=== PATIENT | female | born 1995 | race Caucasian/White ===

== ENCOUNTER 2019-04-29 16:20 | Inpatient (IN) | payer OTHER ==
[~2019-04-29 16:20] MED LIST: Bupivacaine HCl 0.25%/Epi 0.0005/PF 10 ML VIAL FS ONE
[2019-04-29 17:16] VITALS: BMI 29.2
[2019-04-29 17:42] LABS: Amnisure Test RUPTURE DETECTED (No Rupture)
[2019-04-29 17:43] LABS: Amnisure Internal Control QC ACCEPTABLE (ACCEPTABLE)
[2019-04-29] MEDS ORDERED: hydrALAZINE 20 MG/ML VIAL SLOW IVP PRN (18:25)
[2019-04-29] MEDS ORDERED: Promethazine HCl 25 MG/ML VIAL IM PRN (18:25)
[2019-04-29] MEDS ORDERED: Lidocaine 1% (PF) 30 ML VIAL SC PRN (18:25)
[2019-04-29] MEDS ORDERED: Methylergonovine 0.2 MG/ML VIAL IM PRN (18:25)
[2019-04-29] MEDS ORDERED: Ondansetron PF 4 MG/2 ML Vial IVP PRN (18:25)
[2019-04-29] MEDS ORDERED: Diphenoxylate HCl/Atropine Tablet PO PRN ×2 (18:25)
[2019-04-29] MEDS ORDERED: Carboprost 250 MCG/ML AMP IM PRN (18:25)
[2019-04-29] MEDS ORDERED: Misoprostol 200 MCG TAB PR PRN (18:25)
[2019-04-29] MEDS ORDERED: Acetaminophen 500 MG TAB PO PRN (18:25)
[2019-04-29] MEDS ORDERED: Butorphanol Tartrate 1 MG/ML VIAL SLOW IVP PRN (18:25)
[2019-04-29] MEDS ORDERED: Penicillin G Potassium 5 MILL.UNITS in Sodium Chloride 0.9% 100 ML IVPB SCH (18:45)
--- NOTE | 2019-04-29 18:56 | PDOC.FPROB ---
FMR OB H&P: HPI - History of Present Illness Chief Complaint: LOF Indentification: 23 yo @ 35.6 wks by LMP/15.0wk sono History of Present Illness: Pt comes in for complaint of LOF. Reports feeling like her water broke around noon. Reports feeling like she might of urinated a bit around noon. Not a large gush. Reports having leaking all afternoon. Reports feeling some occasional ctx. Reports feeling back pain off and on. Denies any vaginal bleeding. Denies any vaginal itching or irritation. Denies any urinary sx's. Denies any headaches or vision changes. Reports some swelling in her LE. Denies any n/v. Primary Care Physician: Dr. 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 pap hx - Surgical History Sx History: tonsillectomy and PE tubes - Social History Social History: Denies tobacco, alcohol or illicit drug use - Family History Family History: MGM-HTN, mother- thyroid FMR OB H&P: Medications - Current Home Medications: Medication Instructions Recorded Confirmed Type Vit No.129/Iron/Folic 1 each PO DAILY 04/29/19 04/29/19 History [ Tablet] Ibuprofen [Motrin] 800 mg PO Q8HR #20 tab 05/01/19 Rx Allergies/Adverse Reactions: Allergies Allergy/AdvReac Type Severity Reaction Status Date / Time No Known Allergies Allergy Verified 04/29/19 17:10 FMR OB H&P: ROS - Review of Systems General: denies: fever/chills, weight/appetite/sleep changes, night sweats, fatigue Eyes: denies: eye pain, vision changes ENT: denies: nasal congestion, rhinorrhea, sore throat Cardiovascular: reports: edema (LE edema). denies: chest pain Gastrointestinal: denies: abdominal pain, bloating, cramping, nausea, vomiting, diarrhea, constipation Genitourinary (Female): reports: contractions. denies: incontinence, dysuria, vaginal discharge, vaginal pain, vaginal bleeding, vaginal pressure Musculoskeletal: denies: pain, stiffness, tenderness, redness Neurologic: denies: numbness, weakness Integumentary: denies: itching, rash Psychological: denies: depression, anxiety FMR OB H&P: Vital Signs - Maternal Vital signs: Vital Signs - First Documented Temp Pulse Resp BP 98.8 F 84 18 125/77 04/29/19 16:55 04/29/19 16:55 04/29/19 16:55 04/29/19 16:55 - Heart Tones Baseline: 130 Variability: moderate Acceleration: present Deceleration: absent Category: category 1 [place] contractions every: 5-6 minutes FMR OB H&P: Physical Exam - Physical Exam General: NAD, awake, alert and oriented HEENT: normocephalic and atraumatic, MMM, grossly normal vision, grossly normal hearing, normal nasal mucosa Neck: supple, trachea midline Heart: RRR, normal S1/S2, no murmurs/rubs/gallops, no edema General: CTAB, no respiratory distress, good air movement, no rales/rhonchi, no wheezing Abdomen: soft, gravid, non-tender, bowel sound present, no masses, no hernias Musculoskeletal: normal gait and station, pulses present Neurological: sensation to pain,touch and proprioception grossly normal Skin: no rash, good tugor, capillary refill <2 seconds Psychiatric: intact recent and remote memory, good judgement and insight, normal mood and affect - Pelvic Exam SVE: 17:20 2/80/0 Membranes: amnisure positive FMR OB H&P: Results - Labs Lab results: Laboratory Results - last 24 hr 04/29/19 17:20 Amnio Swab Test RUPTURE DETECTED H FMR OB H&P: A/P - Problem List (1) Current Visit: Yes Status: Acute Qualifiers: Weeks of gestation: 36 weeks Qualified Code(s): Z3A.36 - 36 weeks gestation of Disposition: 23 yo @ 35.6 weeks dated by LMP/15.0 wk sono here for concern of LOF -Amnisure positive. -SVE 80/0 @ 17:20. Ctx every 5-6 minutes -Cat 1 strip. Accels noted. -Will check speculum exam for pooling and get US to check fluid level. -Will continue to monitor for progression of labor. -Will give dose of steroids and will check GBS as unkown at this time. If pt appears in Labor will start on penicillin for coverage. Discussion: Date/Time: 04/29/19 3107 This H&P was discussed with [] and [] who agree with the above documentation and plan. Addendum - Attending - Attending Attestation Date/Time: 05/01/19 5060 I personally evaluated the patient and discussed the management with Dr. Tom I agree with the History, Examination, Assessment and Plan documented above with any addition or exceptions noted below.
[2019-04-29] MEDS: Betamet Acet/Betamet Na Ph 30 MG/5 ML VIAL IM SCH (19:41)
[2019-04-29 20:06] LABS: HBSAg Index 0.21 S/CO (0-0.99); Hep B Surf Ag Non-Reactive S/CO (NonReactive); Syphilis Antibody Nonreactive (Nonreactive); Syphilis Antibody Index 0.09 S/CO (<1.00 Non-Reactive)
--- NOTE | 2019-04-29 20:07 | ULT ---
EXAM: Pelvic ultrasound HISTORY: female with size less than dates. Evaluate amniotic volume and presentation COMPARISON: None TECHNIQUE: Multiple grayscale and color Doppler images were obtained in a transabdominal pelvic ultra sound. FINDINGS: The fetus is in vertex presentation. A heart rate is detected at 137 bpm. JIA is 6.1 cm. The placenta is anterior in location without evidence of placenta previa. IMPRESSION: Single live intrauterine in vertex presentation
[2019-04-29 20:29] LABS: Hemoglobin 12.1 g/dL (12.0-16.0); Mean Corpuscular HGB CONC 35.7 g/dL (32.0-36.0); Mean Corpuscular Hemoglobin 31.8 pg (27.0-31.0); Mean Corpuscular Volume 89.2 fL (78.0-98.0); Mean Platelet Volume 7.6 fL (7.4-10.4); Platelet Count 177 thou/uL (130-400); RBC Distribution Width 11.4 % (11.5-14.5)
--- NOTE | 2019-04-29 21:39 | PDOC.LDPN ---
Labor & Delivery Progress Note - Subjective Subjective: comfortable - Objective Vital signs reviewed and normal: yes General: NAD, resting SVE: 8:30 Dilation: 2 Effacement: 90% Station: 0 FHT: category 1, variability present [place] contractions every: 5 minutes Other exam findings: Speculum exam performed. Pooling noted - Assessment (1) Current Visit: Yes Status: Acute Qualifiers: Weeks of gestation: 35 weeks Qualified Code(s): Z3A.35 - 35 weeks gestation of Plan: continue plan of care -: 23 yo @ 35.6 weeks dated by LMP/15.0 wk sono admitted due to PPROM -Cat 1 strip -SVE 8:30 2/80/0. Unchanged from previous check. -1 dose Betamethasone administered. -US showed vertex, JIA 6.1. Speculum exam performed and active pooling from cervix noted. -GBS cx obtained. Will start penicillin ppx due to unknown status -PT VSS. -At this time will continue to monitor and check patient as needed. No plan for augmentation of labor.
[2019-04-30] MEDS: Penicillin G 2.5 MILL.units 2.5 MILL.UNITS in Premix Bag 1 BAG IVPB SCH ×6 (00:45→23:18)
--- NOTE | 2019-04-30 04:15 | PDOC.LDPN ---
Labor & Delivery Progress Note - Subjective Subjective: comfortable, painful contractions (slight increase in contractions per pt) - Objective Vital signs reviewed and normal: yes General: NAD, resting (sleeping comfortably) Uterine fundus: non tender SVE: /0 Dilation: 2 Effacement: 75% (80) Station: 0 FHT: category 1 (accels, baseline 140, no decels), variability present [place] contractions every: 4-6 min AROM: clear fluid Plan: continue plan of care -: 23 yo @ 36 weeks dated by LMP c/w 15.0 wk sono admitted due to PPROM - Cat 1 strip, baseline 140, moderate variability, accels, no deccels - SVE at 0100 /0. Unchanged from previous 2 checks - dose endorse slight increase of contractions and pelvic pressure prior to last check - 1 dose Betamethasone administered. Second dose due at 1900 on 04/30 - US showed vertex, JIA 6.1. Speculum exam performed and active pooling from cervix noted. - GBS cx obtained. Will start penicillin ppx due to unknown status - PT VSS. - At this time will continue to monitor and check patient as needed. Cont to monitor. No plan for augmentation of labor at this time. Will reassess in AM. Diet: Clear Liquid IVF: LR @ 125cc/hr
[2019-04-30] MEDS ORDERED: NS w/ Oxytocin 10 units 500 ML IV SCH (09:15)
[2019-04-30] MEDS ORDERED: NS w/ Oxytocin 10 units 500 ML ONE (09:21)
[2019-04-30] MEDS: Betamet Acet/Betamet Na Ph 30 MG/5 ML VIAL IM SCH (09:31)
[2019-04-30] MEDS: Lactated Ringer's 1,000 ML IV SCH ×3 (09:41→17:43)
--- NOTE | 2019-04-30 13:15 | PDOC.OBLPN ---
FMR OB Labor PN: Subj - Interval History Hospital Day: 1 Chief Complaint: Loss of Fluid Interval History: Mom is doing well, can feel contractions FMR OB Labor PN: Obj - Maternal Vital signs: BP: 110/72 HR: 74 RR: 18 Pox: 99% on RA Wt: 79.832 kg FMR OB Labor PN: Exam - Physical Exam General: NAD HEENT: normocephalic and atraumatic, no scleral icterus, oropharynx clear, good dention Neck: supple, no LAD Chest: non-tender to palpation Heart: RRR, normal S1/S2 General: CTAB Abdomen: soft, gravid, non-tender, bowel sound present Musculoskeletal: pulses present, FROM in all four extremities Neurological: cranial nerves II through XII intact Skin: no rash Lymphatic: no unusual bruising or bleeding - Pelvic Exam SVE: / FMR OB Labor PN: Data - Labs Lab results: Laboratory Results - last 24 hr 04/29/19 04/29/19 04/29/19 17:20 19:16 19:16 WBC RBC Hgb Hct MCV MCH MCHC RDW Plt Count MPV Amnio Swab Test RUPTURE DETECTED H Syphilis IgG/IgM Ab Nonreactive Hep Bs Antigen Non-Reactive Blood Type Antibody Screen 04/29/19 04/29/19 04/29/19 19:16 20:13 20:13 WBC 13.0 H RBC 3.80 L Hgb 12.1 Hct 33.9 L MCV 89.2 MCH 31.8 H MCHC 35.7 RDW 11.4 L Plt Count 177 MPV 7.6 Amnio Swab Test Syphilis IgG/IgM Ab Hep Bs Antigen Blood Type A POSITIVE A POSITIVE Antibody Screen NEGATIVE FMR OB Labor PN: A/P - Problem List (1) Current Visit: Yes Status: Acute Qualifiers: Weeks of gestation: 36 weeks Qualified Code(s): Z3A.36 - 36 weeks gestation of Disposition: 23 F at 36 weeks here for PPROM. 1. PPROM * Given Penicillin G overnight * Given 1 dose of Betamethasone 2. Induction of Labor * Started on Pitocin at 9:43 * Last Check done at 11:43 showed no change (), will place IUPC at next check if still unchanged. Discussion: Date/Time: 04/30/19 1311 This H&P was discussed with [] and [] who agree with the above documentation and plan.
[2019-04-30] MEDS ORDERED: Fentanyl 4 mcg/Bup 0.1% Cadd 100 ML ONE (16:45)
[2019-04-30] MEDS ORDERED: Naloxone HCl 0.4 mg/ml Vial IVP PRN ×2 (17:39)
[2019-04-30] MEDS ORDERED: Ondansetron PF 4 MG/2 ML Vial IVP PRN (17:39)
[2019-04-30] MEDS ORDERED: Promethazine HCl 25 MG/ML VIAL IM PRN (17:39)
[2019-04-30] MEDS ORDERED: Lactated Ringer's 500 ML IV PRN (17:39)
[2019-04-30] MEDS ORDERED: Acetaminophen 325 MG TAB PO PRN (17:39)
[2019-04-30] MEDS ORDERED: diphenhydrAMINE 50 MG/ML VIAL IVP PRN (17:39)
[2019-04-30] MEDS ORDERED: ePHEDrine/0.9% NaCl/PF SYRINGE 50 mg/10 ml SLOW IVP PRN (17:39)
[2019-04-30] MEDS ORDERED: Communication Order-Pharmacy FS SCH (17:45)
[2019-04-30] MEDS ORDERED: Fentanyl 4 mcg/Bupivacaine 0.1% Cassette 100 ML EPIDURAL SCH (17:45)
--- NOTE | 2019-04-30 17:47 | PDOC.OBLPN ---
FMR OB Labor PN: Subj - Interval History Hospital Day: 1 Chief Complaint: PPROM Interval History: Contractions are stronger now. FMR OB Labor PN: Obj - Maternal Vital signs: BP: 121/65 HR: 90 - Procedures IUPC placed: yes FMR OB Labor PN: Exam - Physical Exam General: NAD HEENT: normocephalic and atraumatic, PERRLA, EOMI, MMM, conjunctiva clear, no scleral icterus, grossly normal hearing, oropharynx clear Neck: supple, trachea midline, no LAD Chest: non-tender to palpation Heart: RRR, normal S1/S2, no murmurs/rubs/gallops General: CTAB, no respiratory distress, good air movement Abdomen: soft, gravid, non-tender, bowel sound present Musculoskeletal: normal gait and station, pulses present, FROM in all four extremities Neurological: no focal deficit Skin: no rash Lymphatic: no LAD Psychiatric: normal mood and affect - Pelvic Exam SVE: FMR OB Labor PN: Data - Labs Lab results: Laboratory Results - last 24 hr 04/29/19 04/29/19 04/29/19 17:20 19:16 19:16 WBC RBC Hgb Hct MCV MCH MCHC RDW Plt Count MPV Amnio Swab Test RUPTURE DETECTED H Syphilis IgG/IgM Ab Nonreactive Hep Bs Antigen Non-Reactive Blood Type Antibody Screen 04/29/19 04/29/19 04/29/19 19:16 20:13 20:13 WBC 13.0 H RBC 3.80 L Hgb 12.1 Hct 33.9 L MCV 89.2 MCH 31.8 H MCHC 35.7 RDW 11.4 L Plt Count 177 MPV 7.6 Amnio Swab Test Syphilis IgG/IgM Ab Hep Bs Antigen Blood Type A POSITIVE A POSITIVE Antibody Screen NEGATIVE FMR OB Labor PN: A/P - Problem List (1) Current Visit: Yes Status: Acute Qualifiers: Weeks of gestation: 36 weeks Qualified Code(s): Z3A.36 - 36 weeks gestation of Disposition: 23 F at 36 weeks here for PPROM. 1. PPROM * Given Penicillin G overnight * Given 1 dose of Betamethasone 2. Induction of Labor * Started on Pitocin at 9:43 * Last Check done at 1600 showed little change (), IUPC placed. Discussion: Date/Time: 04/30/19 3345 This H&P was discussed with [] and [] who agree with the above documentation and plan.
--- NOTE | 2019-04-30 21:17 | PDOC.LDPN ---
Labor & Delivery Progress Note - Subjective Subjective: comfortable, vaginal pressure - Objective Vital signs reviewed and normal: yes General: NAD, resting, breathing through contractions Uterine fundus: non tender SVE: 8:45 Effacement: 75% Station: 0 FHT: category 1, variability present [place] contractions every: 3 minutes AROM: clear fluid IUPC placed: yes - Assessment (1) Current Visit: Yes Status: Acute Qualifiers: Weeks of gestation: 36 weeks Qualified Code(s): Z3A.36 - 36 weeks gestation of Plan: continue plan of care, pitocin for augmentation -: 23 F at 36 weeks here for PPROM. 1. PPROM * Given Penicillin G overnight * Given 1 dose of Betamethasone on 04/29 and rescue dose this morning * Pt having mild fever 99.2. Uterus nontender. Will give 1g azithromycin 2. Induction of Labor * Started on Pitocin at 9:43. Pit at rate of 6. MVU's adequate * Last Check done at 1600 showed little change (380/0), IUPC placed. * Pt had forebag which we ruptured at 2044. Clear fluid noted. * Cat 1 strip. Accels noted. FHR 130. * Will continue to check q4hrs or as needed.
[2019-04-30] MEDS ORDERED: Azithromycin 1,000 MG in Sodium Chloride 0.9% 500 ML IVPB SCH (21:30)
[2019-04-30] MEDS ORDERED: Azithromycin 250 MG TAB PO SCH (22:30)
--- NOTE | 2019-05-01 00:35 | PDOC.LDPN ---
Labor & Delivery Progress Note - Subjective Subjective: comfortable, vaginal pressure - Objective Vital signs reviewed and normal: yes General: NAD, resting Uterine fundus: non tender SVE: 23:00 by nursing Dilation: 5 Effacement: 100% Station: 1+ FHT: category 1, variability present [place] contractions every: 3-4 minutes AROM: clear fluid IUPC placed: yes - Assessment (1) Current Visit: Yes Status: Acute Qualifiers: Weeks of gestation: 36 weeks Qualified Code(s): Z3A.36 - 36 weeks gestation of Plan: continue plan of care, pitocin for augmentation -: 23 F at 36 weeks here for PPROM. 1. PPROM * Getting tx with Penicillin G and 1 g Azithromycin orally. No fevers or abnormal vital signs noted since last check. * Given 1 dose of Betamethasone on 04/29 and rescue dose this morning 2. Induction of Labor * Started on Pitocin at 9:43 on 04/30. MVU's adequate. Continue pitocin for augmentation * SVE 5/100/+1 @23:00, IUPC placed. * Pt had forebag which we ruptured at 2044. Clear fluid noted. * Cat 1 strip. Accels noted. FHR 130. * Will continue to check as needed.
[2019-05-01] MEDS ORDERED: Fentanyl 4 mcg/Bup 0.1% Cadd 100 ML ONE (00:41)
[2019-05-01] MEDS ORDERED: diphenhydrAMINE 25 MG CAP PO PRN (02:18)
[2019-05-01] MEDS ORDERED: Preparation H Ointment 28 GM TUBE PR PRN (02:18)
[2019-05-01] MEDS ORDERED: Bisacodyl 10 MG SUPP PR PRN (02:18)
[2019-05-01] MEDS ORDERED: Lanolin Ointment 7 GM TUBE TOP PRN (02:18)
[2019-05-01] MEDS ORDERED: Benzocaine-Menthol 82.5 ML CAN TOP PRN (02:18)
[2019-05-01] MEDS ORDERED: Milk Of Magnesia 30 ML UDCUP PO PRN (02:18)
[2019-05-01] MEDS: NS / Oxytocin 40 units/1000ml 1,000 ML IV PRN ×2 (02:25→04:17)
--- NOTE | 2019-05-01 02:50 | PDOC.OPDEL ---
OB Operative/Delivery Note Delivery Dr/Surgeon: Atiya/Jewel/Davey Pre-Delivery Diagnosis: active labor, medically indicated induction, other ( PPROM) Procedure/Post Delivery Dx: spontaneous vaginal delivery Weeks gestation: 36 (36.1) Anesthesia: epidural - Findings A Sex: male - 1 min: 8 - 5 min: 10 - Additional Findings/Plan Placenta delivered: spontaneous Repaired Obstetrical Laceration: other (repair with figure of 8 using 3.0 vicryl in the usual and sterile fashion. Hemostasis achieved.) Estimated blood loss: 550cc Compilations/Other Findings: This is 23yo F @ 36.1 wks who delivered a viable M at 0214. Following an uneventful antepartum course, a vigorous male was delivered over an intact perineum in the occipitoanterior position. Anterior Shoulder and then remainder of the body delivered. Body Cord x1. The head was held down and mouth and nares were bulb suctioned. Cord clamped after delayed cord clamping and cut and cord blood collected. Placenta delivered intact in the [place] presentation with a 3 vessel cord noted. Fundal massage was performed. Initially lower uterine segment was slightly boggy. Fundal massage continued. Given Methergine. Uterine was then found to be firm with cessation of uterine bleedin. The cervix and vagina were inspected and Left labia Laceration noted and repaired with 3.0 vicryl in the usual fashion with good approximation and hemostasis. went to nursery in good condition for routine care. Apgars were 8/10 at 1 & 5 minutes, respectively. Patient tolerated delivery well and went to after routine recovery/care. Post delivery plan: routine recovery (I was present at delivery and supervising DDD)
[2019-05-01 05:56] LABS: Hemoglobin 10.1 g/dL (12.0-16.0)
[2019-05-01] MEDS: Lactated Ringer's 1,000 ML IV SCH ×2 (06:08→06:09)
[2019-05-01] MEDS: Penicillin G 2.5 MILL.units 2.5 MILL.UNITS in Premix Bag 1 BAG IVPB SCH (06:09)
[2019-05-01] MEDS: Ibuprofen 800 MG TAB PO SCH ×3 (06:33→21:53)
[2019-05-01] MEDS ORDERED: Ferrous Sulfate 325 MG TAB PO SCH (08:00)
[2019-05-01] MEDS: Docusate Calcium (SURFAK) 240 MG CAP PO SCH ×2 (08:28→21:53)
[2019-05-01] MEDS: Prenatal Vitamin 1 TAB PO SCH (08:28)
[2019-05-01] MEDS ORDERED: Adacel (T-DAP) 0.5 ML SYRINGE IM ONE (09:00)
[2019-05-02] MEDS: Ibuprofen 800 MG TAB PO SCH ×3 (05:54→21:52)
--- NOTE | 2019-05-02 07:30 | PDOC.OBPPN ---
FMR OB PN: Subj - Interval History Day: 1 23 y/o ->1 @ 36.1 delivered via @ 0214 on 05/01/19 due to PPROM. Pt doing well. Denies any complaints today. Reports she was feeling lightheaded yesterday, but that has improved. She reports her abdominal cramping is controlled with ibuprofen. She has been up to the bathroom and is tolerating PO. Denies palpitation, chest pain, N/V. FMR OB PN: Obj - Maternal Vital signs: BP: 108/55 HR: 70 RR: 14 Tmax: 98.2 Pox: 98% on RA Wt: 79.8kg - Urine output I&O: 05/01/19 05/02/19 05/03/19 06:59 06:59 06:59 Intake Total 960 Output Total 680 Balance -680 960 FMR OB PN: Exam - Physical Exam General: NAD, awake, alert and oriented HEENT: MMM, conjunctiva clear, grossly normal vision, grossly normal hearing Neck: supple, no LAD Heart: RRR, normal S1/S2, no murmurs/rubs/gallops, pulses present, no edema General: CTAB, no respiratory distress, good air movement, no rales/rhonchi, no wheezing Abdomen: soft, fundus(cm) (firm 2cm below umbilicus), bowel sound present Musculoskeletal: pulses present Skin: good tugor, capillary refill <2 seconds Psychiatric: intact recent and remote memory, good judgement and insight FMR OB PN: A/P - Problem List (1) delivery Current Visit: Yes Status: Acute Code(s): O60.10X0 - LABOR W DELIVERY, UNSP TRIMESTER, UNSP Assessment and Plan: Continue routine care -PNV -Iron -Ibuprofen for pain control -Encourage ambulation -Tolerating PO (2) premature rupture of membranes (PPROM) delivered, current hospitalization Current Visit: Yes Status: Acute Code(s): O42.919 - PRETRM ROBERTO ROM, UNSP TIME BETW RUPT AND ONST LABR, UNSP TRI Assessment and Plan: GBS pending ROM for about 36 hours prior to delivery. Pt afebrile Disposition: Continue routine care Discussion: Date/Time: 11/09/19 0728 This H&P was discussed with Dr. Delgado who agrees with the above documentation and plan. Signature: Tracy Holloway MD, PGY-3
--- NOTE | 2019-05-02 08:00 | PRG ---
DATE OF SERVICE: 05/02/2019 SUBJECTIVE: The patient is day 1, status post a spontaneous vaginal delivery at 36 weeks for premature rupture of membranes. The patient reports this morning that she is tolerating p.o., voiding on her own, and having decreased lochia and good pain control. OBJECTIVE: VITAL SIGNS: This morning, blood pressure 108/55, temperature 98.2, pulse is 70, respiratory rate of 14, saturating 98% on room air. GENERAL: She appears to be in no acute distress. She is alert, oriented, cooperative, and pleasant to interact with. ABDOMEN: Fundus is firm at the umbilicus -2. EXTREMITIES: Nontender and nonedematous with symmetrical edema. LABORATORY DATA: Post delivery hemoglobin is 10.1, hematocrit 28.3. ASSESSMENT AND PLAN: The patient is day 1, status post a spontaneous vaginal delivery. We will anticipate discharge tomorrow. Job ID: [id number]
[2019-05-02] MEDS: Docusate Calcium (SURFAK) 240 MG CAP PO SCH ×2 (08:15→21:52)
[2019-05-02] MEDS: Prenatal Vitamin 1 TAB PO SCH (08:15)
--- NOTE | 2019-05-03 04:48 | PDOC.OBPPN ---
FMR OB PN: Subj - Interval History Day: 2 23 y/o ->1 @ 36.1 delivered via @ 0214 on 05/01/19 due to PPROM. Pt doing well. Denies any complaints today. She reports her abdominal cramping is controlled with ibuprofen. She has been ambulating and is tolerating PO. Denies palpitation, chest pain, N/V. Breast feeding. FMR OB PN: Obj - Maternal Vital signs: BP: 107/59 HR: 81 RR: 18 Tmax: 98.3 Pox: 98% on RA Wt: 79.8kg - Urine output I&O: 05/01/19 05/02/19 05/03/19 06:59 06:59 06:59 Intake Total 960 Output Total 680 Balance -680 960 FMR OB PN: Exam - Physical Exam General: NAD, awake, alert and oriented HEENT: EOMI, MMM, grossly normal vision, grossly normal hearing Neck: supple, FROM Heart: RRR, pulses present, no edema General: CTAB, no respiratory distress Abdomen: soft, fundus(cm) (firm 2 cm below umbilicus) Skin: good tugor, capillary refill <2 seconds Psychiatric: intact recent and remote memory, good judgement and insight FMR OB PN: A/P - Problem List (1) delivery Current Visit: Yes Status: Acute Code(s): O60.10X0 - LABOR W DELIVERY, UNSP TRIMESTER, UNSP Assessment and Plan: Continue routine care -PNV -Iron -Ibuprofen for pain control -Encourage ambulation -Tolerating PO (2) premature rupture of membranes (PPROM) delivered, current hospitalization Current Visit: Yes Status: Acute Code(s): O42.919 - PRETRM ROBERTO ROM, UNSP TIME BETW RUPT AND ONST LABR, UNSP TRI Assessment and Plan: GBS pending ROM for about 36 hours prior to delivery. Pt afebrile Disposition: d/c home today Discussion: Date/Time: 05/03/19 3952 This H&P was discussed with Dr. Srinivasan who agrees with the above documentation and plan. Signature: Tracy Holloway MD, PGY-3 Addendum - Attending - Attending Attestation Date/Time: 05/03/19 0625 I personally evaluated the patient and discussed the management with Dr. Holloway. I agree with the Assessment and Plan documented above.
[2019-05-03] MEDS: Ibuprofen 800 MG TAB PO SCH ×2 (05:13→15:23)
[2019-05-03] MEDS: Docusate Calcium (SURFAK) 240 MG CAP PO SCH (09:25)
[2019-05-03] MEDS: Prenatal Vitamin 1 TAB PO SCH (09:25)
[2019-05-03 11:51] VITALS: BP 110/58; TEMP 98.5
== END 2019-05-03 18:52 | disposition home or self-care (01) | DRG 807 ==
LOC: L&D/OP 16:20 → L&D 19:15 → 3SE 05-01 05:51
PROVIDERS: ADMIT Obstetrics & Gynecology; ATTEND Family Medicine
PROC: 10E0XZZ Delivery of Products of Conception, External Approach (ICD-10-PCS; principal; 2019-05-01)
PROC: 0HQ9XZZ Repair Perineum Skin, External Approach (ICD-10-PCS; 2019-05-01)
PROC: 3E033VJ Introduction of Other Hormone into Peripheral Vein, Percutaneous Approach (ICD-10-PCS; 2019-05-01)
DX: O42.913 Preterm premature rupture of membranes, unspecified as to length of time between rupture and onset of labor, third trimester (principal); Z37.0 Single live birth; Z3A.35 35 weeks gestation of pregnancy; O70.0 First degree perineal laceration during delivery
CPT/HCPCS: 36415; 51702; 76815; 84112; 85014; 85018; 85027; 86780; 86850; 86900; 86901; 87081; 87340; 99285; J0702; J2210; J2540; J2590; J3490

== ENCOUNTER 2020-07-31 18:42 | Day surgery (SDC) | payer OTHER ==
[2020-07-31 19:14] VITALS: BMI 29.1
[2020-07-31] MEDS ORDERED: hydrALAZINE 20 MG/ML VIAL SLOW IVP PRN (20:55)
--- NOTE | 2020-07-31 21:03 | PDOC.FPROB ---
FMR OB H&P: HPI - History of Present Illness Chief Complaint: vaginal pressure History of Present Illness: Pt is a 24 yo F at 37.2 wga who presents with cc of vaginal pressure. She states it started earlier today around 5pm. At 530 she noticed clear discharge slowly leaking from her vagina. She denied a gush of fluid or a need for a pad. She states this is how her last presented in labor so she came to L&D. She denies any problems this . Denies SERRA, vision changes, SOB, N/V, edema, vaginal bleeding. Endorses good movement. 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 on 07/31/20 denies history of STD - Surgical History Sx History: non contributory - Social History Social History: non contributory - Family History Family History: non contributory FMR OB H&P: Medications - Current Home Medications: Medication Instructions Recorded Confirmed Type Vit No.129/Iron/Folic 1 each PO DAILY 04/29/19 07/31/20 History [ One Daily Tablet] Allergies/Adverse Reactions: Allergies Allergy/AdvReac Type Severity Reaction Status Date / Time No Known Allergies Allergy Verified 04/29/19 17:10 FMR OB H&P: ROS - Review of Systems General: denies: fever/chills Eyes: denies: vision changes, double vision Cardiovascular: denies: chest pain, palpitation, edema Respiratory: denies: cough, shortness of breath Gastrointestinal: denies: abdominal pain, cramping, nausea, vomiting Genitourinary (Female): reports: vaginal discharge, vaginal pain, vaginal pressure. denies: incontinence, vaginal bleeding, contractions Musculoskeletal: denies: stiffness, tenderness Neurologic: denies: numbness, syncope, seizures, weakness Integumentary: denies: itching Breast: denies: masses, skin changes, nipple changes Hematologic/Lymphatic: denies: prolonged or excessive bleeding Psychological: denies: depression, anxiety FMR OB H&P: Vital Signs - Maternal Vital signs: WNL - Heart Tones Baseline: 125 Variability: moderate Acceleration: present Deceleration: absent Category: category 1 [place] contractions every: irregular, every 4-12 min FMR OB H&P: Physical Exam - Physical Exam General: NAD, awake, alert and oriented HEENT: normocephalic and atraumatic, PERRLA, EOMI, grossly normal vision Neck: supple Heart: RRR, normal S1/S2, pulses present, no edema General: CTAB, no respiratory distress, no wheezing Abdomen: soft, gravid, non-tender Musculoskeletal: pulses present, FROM in all four extremities Neurological: cranial nerves II through XII intact Skin: no rash, good tugor Lymphatic: no unusual bruising or bleeding Psychiatric: intact recent and remote memory, good judgement and insight - Pelvic Exam Vulva: normal hair distribution, no blood Deviation from normal: large amount of white thick discharge noted on sterile speculum exam SVE: /0 Presentation: cephalic FMR OB H&P: A/P Disposition: 24 yo F at 37.2 wga who presents with cc of vaginal pressure and clear discharge rule out labor -patient without pooling on speculum exam -large amount of discharge noted, VP3 obtained -/0 initial cervical check -Amnisure pending -yusuf irregularly from every 4 to 12 minutes on toco -cat 1 strip with 125bpm baseline, moderate variability, +accels -will recheck cervix in 2 hours to assess for change and wait for amnisure result to assess if patient is in labor Discussion: Date/Time: 07/31/202102 This H&P was discussed with Dr. Franklin and Dr. Keane who agree with the above documentation and plan. Addendum - Attending - Attending Attestation Date/Time: 08/01/20 0640 I personally evaluated the patient and discussed the management with Dr. Yañez. I agree with the History, Examination, Assessment and Plan documented above.
[2020-07-31 21:09] LABS: Amnisure Internal Control QC ACCEPTABLE (ACCEPTABLE); Amnisure Test No Membranes Rupture (No Rupture)
--- NOTE | 2020-07-31 22:57 | PDOC.BPN ---
<Mercy Yañez - Last Filed: 07/31/20 22:57> - Brief Progress Note Patient unchanged at cervical check 2 hours after arrival to L&D but complaining of worsening pain/vaginal pressure. Kept patient for 2 additional hours of monitoring. No cervical change with check of /75/0 @ 2240. Strip remained cat 1 throughout time in triage with moderate variability from 120-130 baseline, + accels. Contractions on toco which were irregular every 4-12 minutes. VP3 negative, amnisure negative. Labor precautions provided. Return to L&D with increasing intensity of contractions, LOF, vaginal bleeding. If she experiences these symptoms before 8 am on 08/01, come to [facility], otherwise go to the [facility]. Plan discussed with laborist Dr Keane who agrees. <Antoinette Keane - Last Filed: 08/01/20 00:26> Addendum - Attending - Attending Attestation Date/Time: 08/01/20 0026 I personally evaluated the patient and discussed the management with Dr. Yañez. I agree with the History, Examination, Assessment and Plan documented above. No e/o active labor, no longer feeling ctx. D/c home with precautions.
== END 2020-07-31 22:35 | disposition home or self-care (01) ==
LOC: L&D/OP 18:42
PROVIDERS: ATTEND Obstetrics & Gynecology
DX: O99.891 Other specified diseases and conditions complicating pregnancy (principal); R10.2 Pelvic and perineal pain; N89.8 Other specified noninflammatory disorders of vagina; Z3A.37 37 weeks gestation of pregnancy
CPT/HCPCS: 84112; 87480; 87510; 87660; 99285

== ENCOUNTER 2025-04-20 12:35 | Emergency (ER) | payer OTHER ==
[2025-04-20 13:00] LABS: #Basophils 0.03 10x3/uL (0.0-0.2); #Eosinophils 0.10 10x3/uL (0.0-0.7); #Monocytes 0.66 10x3/uL (0.11-0.59); #Neutrophils 8.87 10x3/uL (1.40-6.50); %Basophils 0.3 % (0.0-1.0); %Eosinophils 0.9 % (0.0-10.0); %Lymphocytes 14.4 % (21.0-51.0); %Monocytes 5.8 % (0.0-10.0); %Neutrophils 78.1 % (42.0-75.0); Hematocrit 34.0 % (36.0-47.0); Hemoglobin 11.4 g/dL (12.0-16.0); Mean Corpuscular Hemoglobin 30.2 pg (27.0-31.0); Mean Corpuscular Volume 90.2 fL (78.0-98.0); Platelet Count 180 10x3/uL (130-400); Red Blood Cell (RBC) Count 3.77 mill/uL (4.20-5.40); White Blood Cell (WBC) Count 11.36 10x3/uL (4.8-10.8)
[2025-04-20 13:29] LABS: ALT (SGPT) 13 U/L (Less than 34); AST (SGOT) 21 U/L (11-34); Albumin 3.6 g/dL (3.1-4.5); Alkaline Phosphatase 140 U/L (40-110); Anion Gap 14 mmol/L (10-20); BUN (Urea Nitrogen) 7 mg/dL (7.0-18.7); Bilirubin, Total 0.4 mg/dL (0.3-1.2); Calc. Creatinine Clearance 0 mL/min (70-130); Calcium 9.3 mg/dL (7.8-10.44); Carbon Dioxide 22 mmol/L (22-29); Chloride 106 mmol/L (98-107); Globulin 3.7 g/dL (2.4-3.5); Glucose 89 mg/dL (70-105); Potassium 3.7 mmol/L (3.5-5.1); Sodium 138 mmol/L (136-145)
[2025-04-20 13:31] LABS: INR-International Normal Ratio 1.0; PTT 30.2 sec (22.9-36.1); Prothrombin Time 12.8 sec (12.0-14.7)
== END 2025-04-20 13:36 | disposition short-term general hospital (02) ==
LOC: ERS 12:35
DX: O75.89 Other specified complications of labor and delivery (principal); D72.829 Elevated white blood cell count, unspecified; Z3A.36 36 weeks gestation of pregnancy
CPT/HCPCS: 80053; 85025; 85610; 85730; 99284